=== PATIENT | female | born 1970 | race Two or more races ===

== ENCOUNTER 2017-06-10 16:22 | Emergency (ER) | payer MEDICAID, OTHER ==
[~2017-06-10] VITALS: Ht 165.1 cm; Wt 59.0 kg
[2017-06-10] MEDS ORDERED: ONDANSETRON HCL 4 MG/2 ML VIAL IV ONE (17:00)
[2017-06-10 17:18] VITALS: BP 117/73
[2017-06-10 17:50] LABS: Basophils # (auto) 0.1 uL; Basophils % (auto) 1.2 % (0.0-2.0); Eosinophils # (auto) 0.1 uL; Eosinophils % (auto) 1.1 % (0.0-7.0); Hematocrit 39.4 % (36.0-46.0); Hemoglobin 13.4 g/dL (12.2-16.2); Lymphocytes # (auto) 2.7 uL; Lymphocytes % (auto) 32.9 % (10.0-50.0); Mean Corpuscular Hemoglobin 28.8 pg (28.0-32.0); Mean Corpuscular Hgb Conc. 34.1 g/dL (32.0-36.0); Mean Corpuscular Volume 84.6 fL (80.0-100.0); Mean Platelet Volume 9.9 fL (6.9-10.8); Monocytes # (auto) 0.6 uL; Monocytes % (auto) 7.8 % (0.0-12.0); Neutrophils # (auto) 4.7 uL; Nucleated Red Blood Cells % 0.1 %; Platelet Count (auto) 372 10^3/uL (140-450); Red Cell Distribution Width 13.5 % (11.8-14.3); White Blood Cell 8.2 10^3/uL (4.4-10.8)
[2017-06-10 18:02] LABS: INR 0.92 (0.9-1.15); Partial Thromboplastin Time 25.8 sec (22.64-33.71)
[2017-06-10 18:14] LABS: Albumin 2.9 g/dL (3.4-5.0); BUN/Creatinine Ratio 5.9; Calcium 8.9 mg/dL (8.5-10.1); Magnesium 3.4 mg/dL (1.6-2.6)
[2017-06-10 18:29] LABS: Bilirubin, Total 0.3 mg/dL (0.2-1.0)
[2017-06-10 18:39] LABS: Temperature: 22.7 C (20.0-25.0)
[2017-06-10] MEDS ORDERED: POTASSIUM CHL 20 Meq TABLET PO ONE ×3 (20:28→20:45)
== END 2017-06-10 20:36 | disposition left against medical advice (07) ==
LOC: ER 16:29
DX: N17.9 Acute kidney failure, unspecified (principal); E83.41 Hypermagnesemia; E87.6 Hypokalemia; E87.1 Hypo-osmolality and hyponatremia; E87.8 Other disorders of electrolyte and fluid balance, not elsewhere classified; N18.6 End stage renal disease; E11.22 Type 2 diabetes mellitus with diabetic chronic kidney disease; I12.0 Hypertensive chronic kidney disease with stage 5 chronic kidney disease or end stage renal disease; E11.65 Type 2 diabetes mellitus with hyperglycemia; Z88.8 Allergy status to other drugs, medicaments and biological substances
CPT/HCPCS: 36415; 71010; 80053; 83605; 83735; 83880; 84484; 85025; 85610; 85730; 87040; 93005; 96374; 99291; J2405